=== PATIENT | male | born 1940 | race Caucasian/White ===

== ENCOUNTER 2016-09-09 09:51 | Day surgery (SDC) | payer MEDICARE, BC ==
[2016-09-09] MEDS ORDERED: Lactated Ringers 1,000 ML IV SCH (10:45)
[2016-09-09] MEDS ORDERED: Propofol 200 MG/20 ML SDV ONE (11:09)
[2016-09-09] MEDS ORDERED: fentaNYL 100 MCG/2 ML SDV ONE (11:09)
[2016-09-09] MEDS ORDERED: Midazolam 1 MG/ML 2 ML SDV ONE (11:09)
[2016-09-09] MEDS ORDERED: Ondansetron 4 MG/2 ML SDV ONE (11:10)
[2016-09-09 13:42] VITALS: BP 143/87
--- NOTE | 2016-09-10 11:31 | OR ---
DATE OF PROCEDURE: 09/09/2016 PREOPERATIVE DIAGNOSIS: Colon cancer screening. POSTOPERATIVE DIAGNOSIS: Diverticulosis. PROCEDURE: Colonoscopy to the cecum. ANESTHESIA: IV anesthesia with monitored anesthesia care. INDICATION: This 76-year-old white male is referred for a colonoscopy for colon cancer screening. He says his last colonoscopic exam was done ten years ago. I counseled him for the procedure including risks and alternatives, and he gave his informed consent to proceed. DESCRIPTION OF PROCEDURE: The patient was placed in the left lateral decubitus position. IV anesthesia was administered by the Anesthesia Service. Time-out was held. A rectal exam was performed, which was unremarkable. The flexible video Olympus colonoscope was introduced through his anus, up his rectum, and out his colon, all the way to the cecum. Once the cecum was reached, the scope was slowly withdrawn examining the mucosa throughout. No mucosal abnormalities were noted until we reached the left colon. Here and in the sigmoid colon, we saw a few scattered diverticula. There was no bleeding nor inflammation associated with them. The scope was retroflexed in the rectum with the distal rectum appearing unremarkable. The scope was straightened and removed. He tolerated the procedure well. Son Guadalupe MD /[id number]
== END 2016-09-09 13:59 | disposition home or self-care (01) ==
LOC: JP.SDS 09:51
PROVIDERS: ATTEND Surgery
DX: Z12.11 Encounter for screening for malignant neoplasm of colon (principal); K57.30 Diverticulosis of large intestine without perforation or abscess without bleeding; I25.10 Atherosclerotic heart disease of native coronary artery without angina pectoris; I12.9 Hypertensive chronic kidney disease with stage 1 through stage 4 chronic kidney disease, or unspecified chronic kidney disease; N18.9 Chronic kidney disease, unspecified; Z88.8 Allergy status to other drugs, medicaments and biological substances; K21.9 Gastro-esophageal reflux disease without esophagitis
CPT/HCPCS: G0121; J2250; J2405; J2704; J3010; J7120